=== PATIENT | male | born 1970 | race Caucasian/White ===

== ENCOUNTER 2019-03-02 11:59 | Emergency (ER) | payer BC ==
[~2019-03-02] VITALS: Ht 177.8 cm; Wt 124.3 kg
[~2019-03-02 11:59] MED LIST: PERCOCET 7.5/321 TAB PO; SLEEP AID25 M1 PO
[2019-03-02 12:11] VITALS: Ht 177.8 cm; Wt 124.3 kg
[2019-03-02] MEDS ORDERED: LISINOPRIL10 MG PO (12:16)
[2019-03-02] MEDS ORDERED: HYDROCHLOROTH12.5 M1 PO (12:16)
[2019-03-02 12:54] LABS: BASOPHILS 0.1 % (0-2); EOSINOPHILS 0.7 % (0-7); HEMATOCRIT 46.7 % (42.0-54.0); IMMATURE GRANULOCYTES 0.4 % (0-5); MCH 29.9 pg (26.0-34.0); MCHC 34.3 g/dL (31.0-37.0); MCV 87.3 fL (80.0-100.0); MEAN PLATELET VOLUME 9.1 fL (7.4-10.4); MONOCYTES 5.7 % (2-11); NEUTROPHILS 83.1 % (40-80); RBC 5.35 10x6/uL (4.20-6.10); RDW 12.9 % (11.5-14.5); WBC 10.1 10x3/uL (4.8-10.8)
[2019-03-02 12:56] LABS: PLATELET COUNT 199 10x3/uL (130-400)
[2019-03-02 12:57] LABS: CALC OSMOLALITY 275 mosm/kg (275-300); CALCIUM 9.3 mg/dL (8.5-10.1); CARBON DIOXIDE 26.6 mmol/L (21.0-32.0); CHLORIDE - SERUM 100 mmol/L (98-107); CREATININE - SERUM 1.1 mg/dL (0.6-1.3); GLUCOSE 110 mg/dL (74-106); POTASSIUM - SERUM 3.5 mmol/L (3.5-5.1); SODIUM 137 mmol/L (136-145); UREA NITROGEN 14 mg/dL (7-18); eGFR NON AFRICAN AMERICAN 75 mL/min (90-120)
[2019-03-02 13:00] LABS: APTT 28.8 SECONDS (22.8-39.4); INR 1.03 (0.85-1.17)
[2019-03-02 13:29] LABS: ALKALINE PHOSPHATASE 138 U/L (46-116); ALT (SGPT) 61 U/L (10-68); BILIRUBIN - TOTAL 0.88 mg/dL (0.2-1.3); CKMB 0.3 U/L (0.0-3.6); CREATINE KINASE 88 UL (21-232); PROTEIN - SERUM 7.9 g/dL (6.4-8.2); TROPONIN-I < 0.017 ng/mL (0.000-0.060)
[2019-03-02] MEDS ORDERED: OMNICEF300 MG PO (13:37)
[2019-03-02] MEDS ORDERED: FLUTICASONE PRO16 GM NASAL (13:37)
[2019-03-02 14:03] LABS: MAGNESIUM - SERUM 1.9 mg/dL (1.8-2.4)
[2019-03-02 14:30] VITALS: BP 157/88
== END 2019-03-02 14:30 | disposition home or self-care (01) ==
LOC: D.ER 11:59
PROVIDERS: Family Medicine
DX: J01.90 Acute sinusitis, unspecified (principal); R53.81 Other malaise; R07.81 Pleurodynia; I10 Essential (primary) hypertension; Z72.0 Tobacco use

== ENCOUNTER → 2019-03-28 14:52 | Outpatient (CLI) | payer OTHER ==
[2019-03-02 12:11] VITALS: BMI 34.5
[~2019-03-28 14:52] MED LIST changes: +FLUTICASONE PRO16 GM NASAL; +HYDROCHLOROTH12.5 M1 PO; +LISINOPRIL10 MG PO; +OMNICEF300 MG PO
== END | disposition home or self-care (01) ==
LOC: D.HCCARDIO 14:52
PROVIDERS: ATTEND Internal Medicine Cardiovascular Disease
DX: R07.9 Chest pain, unspecified (principal)